=== PATIENT | female | born 1945 | race Caucasian/White ===

== ENCOUNTER 2024-04-23 08:35 | Outpatient (CLI) | payer MEDICARE | END 2024-04-23 08:36 | disposition home or self-care (01) | LOC: CSHMRI 08:35 | PROVIDERS: ATTEND Family Medicine | DX: I63.9 Cerebral infarction, unspecified (principal); R53.1 Weakness; R20.0 Anesthesia of skin | CPT/HCPCS: 36415; 70553; 76376; 82565 ==